=== PATIENT | female | born 1980 | race Two or more races ===

== ENCOUNTER 2022-04-22 17:46 | Emergency (ER) | payer OTHER ==
[2022-04-22 17:53] VITALS: BP 112/76; PULSE 64; TEMP 98.2; BMI 29.2
[2022-04-22] MEDS ORDERED: diazePAM 5 MG TABLET PO ONE (18:57)
[2022-04-22] MEDS ORDERED: KETOROLAC TROMETHAMINE 30 MG/1 ML VIAL IM ONE (18:57)
[2022-04-22] MEDS ORDERED: LIDOCAINE 5% TOPICAL PATCH TP ONE (18:57)
[2022-04-22] MEDS ORDERED: LIDOCAINE 5% TOPICAL PATCH ONE (19:07)
[2022-04-22] MEDS ORDERED: diazePAM 5 MG TABLET ONE (19:07)
[2022-04-22] MEDS ORDERED: KETOROLAC TROMETHAMINE 30 MG/1 ML VIAL ONE (19:07)
[2022-04-22] MEDS ORDERED: LIDOCAINE PATCH REMOVAL MC SCH (22:00)
== END 2022-04-22 19:53 | disposition home or self-care (01) ==
LOC: JER 17:46
PROC: 3E023GC Introduction of Other Therapeutic Substance into Muscle, Percutaneous Approach (ICD-10-PCS; principal; 2022-04-22)
DX: M62.838 Other muscle spasm (principal)
CPT/HCPCS: 93005; 93010; 99284-25

== ENCOUNTER 2024-08-30 01:17 | Emergency (ER) | payer SELFPAY ==
[2024-08-30 01:38] VITALS: RESP 18; BMI 29.0
[2024-08-30 02:54] LABS: URINE APPEARANCE CLEAR; URINE BILIRUBIN NEGATIVE (NEGATIVE); URINE COLOR YELLOW; URINE GLUCOSE (UA) NEGATIVE (NEGATIVE); URINE KETONE 2+ (NEGATIVE); URINE LEUK ESTERASE NEGATIVE (NEGATIVE); URINE NITRITE NEGATIVE (NEGATIVE); URINE PROTEIN NEGATIVE (NEGATIVE); URINE UROBILINOGEN 0.2 mg/dL (0.2-1.0)
[2024-08-30 02:56] LABS: HCG,QUALITATIVE URINE Negative
[2024-08-30 03:00] LABS: COCAINE, UR NEGATIVE (NEGATIVE); METHADONE, UR NEGATIVE (NEGATIVE); URINE BARBITURATES NEGATIVE (NEGATIVE)
[2024-08-30 03:01] LABS: PHENCYCLIDINE,URINE NEGATIVE (NEGATIVE)
[2024-08-30] MEDS ORDERED: LORazepam 1 MG TABLET ONE (03:01)
[2024-08-30] MEDS: LORazepam 2 MG TABLET PO ONE (03:04)
[2024-08-30 03:11] LABS: OPIATES, URI NEGATIVE (NEGATIVE); URINE AMPHETAMINES NEGATIVE (NEGATIVE); URINE BENZODIAZEPINES NEGATIVE (NEGATIVE)
[2024-08-30 03:17] LABS: BASO % 0.3 % (0-2.0); EOS % 0.5 % (0-4.5); HEMATOCRIT 37.7 % (32.4-45.2); HEMOGLOBIN 12.6 GM/dL (10.7-15.3); LYMPH % 24.7 % (8-40); MCH 30.5 pg (25.7-33.7); MCHC 33.5 g/dl (32.0-36.0); MEAN CELL VOLUME 91.1 fl (80-96); MEAN PLT VOLUME 8.7 fl (7.5-11.1); MONO % 5.6 % (3.8-10.2); NEUT % 68.9 % (42.8-82.8); PLATELET COUNT 300 10^3/uL (134-434); RBC 4.14 M/mm3 (3.60-5.2); RDW 13.6 % (11.6-15.6); WHITE BLOOD COUNT 8.9 K/mm3 (4.0-10.0)
[2024-08-30 03:32] LABS: BLOOD UREA NITROGEN 9.6 mg/dL (7-18); CALCIUM 9.1 mg/dL (8.5-10.1)
[2024-08-30 03:35] LABS: CREATININE 0.7 mg/dL (0.55-1.3)
[2024-08-30 03:36] LABS: BILIRUBIN,TOTAL 0.4 mg/dL (0.2-1); TOT PROT 7.2 g/dl (6.4-8.2)
[2024-08-30 11:38] VITALS: BP 105/63; PULSE 84; TEMP 98.1
== END 2024-08-30 13:00 | disposition home or self-care (01) ==
LOC: JER 01:17
DX: F41.9 Anxiety disorder, unspecified (principal); R45.851 Suicidal ideations
CPT/HCPCS: 36415; 80053; 80307; 81003; 84443; 84703; 85025; 93005; 93010; 99284-25